=== PATIENT | male | born 1980 | race Asian ===

== ENCOUNTER 2017-06-12 16:38 | Emergency (ER) | payer OTHER ==
[2017-06-12 16:57] VITALS: BP 105/31; PULSE 98; TEMP 98.3; BMI 24.9
--- NOTE | 2017-06-12 17:56 | PDOC ---
History of Present Illness - General Chief Complaint: Injury Stated Complaint: INJURY Time Seen by Provider: 06/12/17 17:14 History Source: Patient Exam Limitations: No Limitations - History of Present Illness Initial Comments: 06/12/17 18:22 Patient is here with complaints of 6 weeks of left knee pain. States has swelling, pain, was diagnosed at another hospital with a left knee sprain but did not follow-up with any orthopedist. Patient has been using a knee/neoprene sleeve but has persistent pain and swelling in his left knee. Denies numbness or tingling to foot, no other injury. Has not used any medication or any treatment for relief of this pain. Long periods of standing. Severity: reports: mild Pain Location: reports: lower extremity (left knee ) Past History - Travel Traveled outside of the country in the last 30 days: No Close contact w/someone who was outside of country & ill: No - Past Medical History Allergies/Adverse Reactions: Allergies Allergy/AdvReac Type Severity Reaction Status Date / Time No Known Allergies Allergy Verified 06/12/17 16:52 Home Medications: Ambulatory Orders Naproxen [Naprosyn -] 500 mg PO TID #28 tablet 06/12/17 Other medical history: DENIES. - Psycho/Social/Smoking Cessation Hx Suicidal Ideation: No Smoking History: Current every day smoker Have you smoked in the past 12 months: Yes Number of Cigarettes Smoked Daily: 30 Information on smoking cessation initiated: No Review of Systems - Review of Systems Able to Perform ROS?: Yes Is the patient limited Wolof proficient: Yes Constitutional: Yes: Symptoms Reported, See HPI HEENTM: No: Symptoms Reported ABD/GI: No: Symptoms Reported Musculoskeletal: Yes: Symptoms Reported, Joint Pain (pain and swelling to left knee ) Integumentary: Yes: Symptoms Reported All Other Systems: Reviewed and Negative *Physical Exam - Vital Signs Last Vital Signs Temp Pulse Resp BP Pulse Ox 98.3 F 98 H 19 105/31 98 06/12/17 16:52 06/12/17 16:52 06/12/17 16:52 06/12/17 16:52 06/12/17 16:52 - Physical Exam General Appearance: Yes: Nourished, Appropriately Dressed, Apparent Distress HEENT: positive: Normal ENT Inspection, TMs Normal, Pharynx Normal Neck: positive: Supple Respiratory/Chest: positive: Lungs Clear Extremity: positive: Normal Capillary Refill, Normal Inspection, Tender. 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 Discussed would give Dr. Jose Lee's name who accepts Medicaid insurance and instructed to make appointment next week for evaluation of his left knee, and right wrist. We'll prescribe Naprosyn for anti- inflammatory and pain relief purpose encouraged to continue using neoprene sleeve, and ERMELINDA E *DC/Admit/Observation/Transfer Diagnosis at time of Disposition: Chronic pain of left knee - Discharge Dispostion Disposition: HOME Condition at time of disposition: Stable Admit: No - Referrals Referrals: Jose Harrison MD [Staff Physician] - - Patient Instructions Printed Discharge Instructions: DI for Knee Pain Additional Instructions: Rest, ice to area on and off for 15 minutes 4-6 times a day Avoid heavy lifting or exercise until pain and swelling is resolved or until further directed Continue use of neoprene splint for compression and support Keep area highly elevated to reduce swelling Followup with orthopedist in one to 2 days if not improving, if significantly improved may wait one week for followup with orthopedist May use Naprosyn 1-500 mg tablet every 8 hours as needed for pain Appointments for Dr. Harrison may be made for Friday morning between 9 and 12 or afternoon between 12 PM 5 PM. He'll need to call to make appointment for either of those times
== END 2017-06-12 18:52 | disposition home or self-care (01) ==
LOC: JERFT 16:38
DX: M25.562 Pain in left knee (principal); G89.29 Other chronic pain; F17.210 Nicotine dependence, cigarettes, uncomplicated
CPT/HCPCS: 99281-25

== ENCOUNTER 2017-12-23 19:34 | Emergency (ER) | payer OTHER ==
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
[2017-12-23 20:07] VITALS: BP 137/95; PULSE 99; TEMP 98.5; BMI 27.6
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
--- NOTE | 2017-12-23 22:28 | PDOC ---
*Physical Exam - Vital Signs Last Vital Signs Temp Pulse Resp BP Pulse Ox 98.5 F 99 H 20 137/95 97 12/23/17 20:03 12/23/17 20:03 12/23/17 20:03 12/23/17 20:03 12/23/17 20:03 Medical Decision Making - Medical Decision Making 12/23/17 22:28 agree with care from ABRAHAM Barroso *DC/Admit/Observation/Transfer Diagnosis at time of Disposition: Head trauma Qualifiers: Encounter type: initial encounter Qualified Code(s): S09.90XA - Unspecified injury of head, initial encounter - Discharge Dispostion Condition at time of disposition: Good - Referrals Referrals: Alvaro Dai MD [Primary Care Provider] - - Patient Instructions Printed Discharge Instructions: DI for Closed Head Injury - Post Discharge Activity
== END 2017-12-24 00:14 | disposition home or self-care (01) ==
LOC: JER 19:34
DX: S09.8XXA Other specified injuries of head, initial encounter (principal); Y04.0XXA Assault by unarmed brawl or fight, initial encounter; Y93.89 Activity, other specified; Y92.89 Other specified places as the place of occurrence of the external cause; Y99.8 Other external cause status; F17.210 Nicotine dependence, cigarettes, uncomplicated
CPT/HCPCS: 70450-TC; 99281-25

== ENCOUNTER 2019-08-09 06:31 | Emergency (ER) | payer OTHER ==
[2019-08-09 06:51] VITALS: BP 126/84; PULSE 84; TEMP 98.7; BMI 27.5
--- NOTE | 2019-08-09 08:22 | PDOC ---
History of Present Illness - General Chief Complaint: Edema Stated Complaint: SWELLING BOTH FEET Time Seen by Provider: 08/09/19 07:26 History Source: Patient, Old Records Exam Limitations: No Limitations - History of Present Illness Initial Comments: HPI: 38 y/o male presenting to [facility] ER complaining of pain and swelling to left lower extremity. Pt reports the symptoms have been acute on chronic for the past two to three months but became worse yesterday. Occasionally notices swelling to right foot without pain. Denies trauma to the area. Denies associated SOB or chest pain. Further states he sometimes has difficulty breathing. 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 PCP: [facility] Hx: - Denies past medical history Review of Systems: In addition to that documented in the HPI above, the additional ROS was obtained : Constitutional: Denies fevers or chills Head: Denies vision changes ENMT: Denies sore throat CV: Denies chest pain Resp: Denies SOB GI: Denies vomiting or diarrhea : Denies painful urination MSK: Denies recent trauma Skin: Denies new rashes Neuro: Denies new numbness or tingling or weakness Endocrine: Denies polyuria Heme: Denies bleeding or bruising Physical Examination: Constitutional: Well-developed, well-nourished adult male in no acute distress or obvious discomfort. Found asleep on hospital bed; easily arousable to voice. Alert and oriented x4. Answered all questions appropriately and completely. Speech was non-labored, non-pressured. Head: Normocephalic. No obvious external signs of trauma. Cardiovascular / Chest: Regular rate and regular rhythm. No murmur, rubs, clicks , or gallops. Peripheral pulses: radial pulses full. Respiratory: Breathing unlabored. Equal chest rise and fall. Clear to auscultation bilaterally. No stridor, no wheezing, no rhonchi. Gastrointestinal: abdomen is soft, non-tender, non-distended. Neuro: Alert and oriented. Moving all four extremities spontaneously. Skin: Warm, dry, and intact. MSK: Bilateral pedal swelling, greater in left. Firm and tender mass on left anterior tibia. Psych: Affect: appropriate. Mood: normal. MDM: *Reviewed vital signs, nursing notes, and prior visit documentation (if available). 38 y/o male presenting with bilateral lower extremity edema (right worse than left). BNP and D-dimer not elevated. U/S unremarkable for DVT. Xray unremarkable for lytic lesion. Suspect likely venous insufficiency. Referred pt to PCP for further evaluation. Provided copies of todays results. Anthony Kingston M.D., PGY2 Emergency Medicine Resident Past History - Past Medical History Allergies/Adverse Reactions: Allergies Allergy/AdvReac Type Severity Reaction Status Date / Time No Known Allergies Allergy Verified 08/09/19 06:45 Home Medications: Ambulatory Orders Naproxen [Naprosyn -] 500 mg PO TID #28 tablet 06/12/17 COPD: No - Suicide/Smoking/Psychosocial Hx Smoking History: Current every day smoker Have you smoked in the past 12 months: Yes Number of Cigarettes Smoked Daily: 15 Information on smoking cessation initiated: No Hx Alcohol Use: No Drug/Substance Use Hx: No Substance Use Type: None *Physical Exam - Vital Signs Last Vital Signs Temp Pulse Resp BP Pulse Ox 98.7 F 84 18 126/84 95 08/09/19 06:47 08/09/19 06:47 08/09/19 06:47 08/09/19 06:47 08/09/19 06:47 ED Treatment Course - LABORATORY CBC & Chemistry Diagram: 08/09/19 08:28 08/09/19 08:28 - RADIOLOGY Radiology Studies Ordered: Category Date Time Status LEG TIB/FIB-LEFT [RAD] Stat Radiology 08/09/19 08:12 Ordered *DC/Admit/Observation/Transfer Diagnosis at time of Disposition: Bilateral swelling of feet and ankles - Discharge Dispostion Disposition: HOME Condition at time of disposition: Good Decision to Admit order: No - Referrals - Patient Instructions Printed Discharge Instructions: DI for Peripheral Edema -- Bilateral Additional Instructions: You were seen today for swelling to your lower legs. Your xray, ultrasound, and blood work were normal. The swelling may be related to your job. Try elevating your legs after work. You can also try using compression socks, which are available at most pharmacies. Follow up with your primary care doctor at the [address] [place] [address] within the next 3-4 days. You will need to call to make an appointment. A copy of todays results are attached to this packet. Take it to the appointment so your doctor can review them. Go to the nearest emergency department if your condition worsens or you feel like you need additional emergency evaluation. Print Language: SLOVAK - Post Discharge Activity
[2019-08-09 08:43] LABS: BASO % 0.8 % (0-2.0); EOS % 1.9 % (0-4.5); HEMATOCRIT 42.4 % (35.4-49); HEMOGLOBIN 14.8 GM/dL (11.7-16.9); LYMPH % 33.2 % (8-40); MCH 30.8 pg (25.7-33.7); MEAN CELL VOLUME 88.1 fl (80-96); MEAN PLT VOLUME 7.7 fl (7.5-11.1); MONO % 4.9 % (3.8-10.2); NEUT % 59.2 % (42.8-82.8); PLATELET COUNT 243 K/MM3 (134-434); RBC 4.82 M/mm3 (4.00-5.60); RDW 13.6 % (11.9-15.9); WHITE BLOOD COUNT 9.4 K/mm3 (4.0-10.0)
[2019-08-09 09:10] LABS: BILIRUBIN,TOTAL 0.4 mg/dL (0.2-1); BLOOD UREA NITROGEN 29.8 mg/dL (7-18); CALCIUM 9.4 mg/dL (8.5-10.1); POTASSIUM 4.2 mmol/L (3.5-5.1); TOT PROT 6.5 g/dl (6.4-8.2)
[2019-08-09 09:13] LABS: PROTHROMBIN TIME (PATIENT) 11.8 SEC (9.7-13.0)
[2019-08-09 09:23] LABS: N-TERMINAL BNP < 5.0 pg/ml (5-125)
--- NOTE | 2019-08-09 11:37 | PDOC ---
Attending Attestation - Resident Resident Name: Anthony Kingston - ED Attending Attestation I have performed the following: I have examined & evaluated the patient, The case was reviewed & discussed with the resident, I agree w/resident's findings & plan, Exceptions are as noted - HPI HPI: 08/09/19 11:33 38yo M denies PMH presents to the emergency department for 2 months of lower extremity edema. He reports the swelling in his legs is worse towards the end of the day. 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 He notes his left lower extremity is a bit more swollen than his right. He presented today due to the persistence of the symptoms. He denies any associated chest pain or shortness of breath, but he states he becomes short of breath sometimes when he is trying to speak Korean. This does not happen when he speaks in Greek. He denies any fevers or chills. He denies headache, dizziness, focal weakness or numbness. He denies abdominal pain, nausea, vomiting, diarrhea, urinary symptoms. He denies any personal or family history of clotting. - Physicial Exam PE: 08/09/19 11:38 agree with resident exam - Medical Decision Making 08/09/19 11:39 38yo M presents to the ED with b/l pedal edema, that improves with elevation Likely venous stasis but DVT vs CHF also on ddx Pt c/o intermittent SOB, he has no significant PE risk factors, thus dimer was sent W/u remarkable with normal labs (including dimer, trop, BNP) US negative for DVT XR done given tender mass on exam to eval for bony lesions, XR negative Likely venous stasis, pt to f/u with PMD at [address] He is clinically stable for DC home I discussed the physical exam findings, ancillary test results and final diagnoses with the patient. I answered all of the patient's questions. The patient was satisfied with the care received and felt comfortable with the discharge plan and treatment plan. The patient will call their primary care physician within 24 hours to arrange follow-up and will return to the Emergency Department with any new, persistent or worsening symptoms. Heart Score/ECG Review #1 08/09/19 11:43 EKG read and int by me: NSR, rate 70. Normal axis and intervals. Single downsloping [place] in V1 (not consistent with Brugada, no hx syncope). Otherwsie, no OR[place]O or TWI. No previous EKG to compare.
--- NOTE | 2019-08-09 18:23 | EKG ---
Test Reason : Blood Pressure : / mmHG Vent. Rate : 070 BPM Atrial Rate : 070 BPM P-R Int : 180 ms QRS Dur : 094 ms QT Int : 380 ms P-R-T Axes : 040 005 018 degrees QTc Int : 410 ms NORMAL SINUS RHYTHM NORMAL ECG NO PREVIOUS ECGS AVAILABLE Confirmed by GENEVA LOU MD ([id number]) on 08/09/2019 6:22:47 PM Referred By: Confirmed By:GENEVA LOU MD
== END 2019-08-09 11:45 | disposition home or self-care (01) ==
LOC: JER 06:31
DX: R60.0 Localized edema (principal); F17.210 Nicotine dependence, cigarettes, uncomplicated
CPT/HCPCS: 36415; 71046-TC-FY; 73590-TC-LT-FY; 80053; 83880; 84484; 85025; 85379; 85610; 93005; 93010; 93970-TC; 99283-25

== ENCOUNTER 2020-01-08 06:19 | Emergency (ER) | payer OTHER ==
[2020-01-08 06:32] VITALS: BP 115/79; PULSE 93; TEMP 98; BMI 25.0
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
[2020-01-08 08:22] LABS: BASO % 0.6 % (0-2.0); EOS % 2.1 % (0-4.5); HEMATOCRIT 42.7 % (35.4-49); HEMOGLOBIN 15.1 GM/dL (11.7-16.9); LYMPH % 36.2 % (8-40); MCH 30.9 pg (25.7-33.7); MCHC 35.3 g/dl (32.0-35.9); MEAN CELL VOLUME 87.6 fl (80-96); MEAN PLT VOLUME 7.2 fl (7.5-11.1); MONO % 4.7 % (3.8-10.2); NEUT % 56.4 % (42.8-82.8); PLATELET COUNT 240 K/MM3 (134-434); RBC 4.87 M/mm3 (4.00-5.60); RDW 13.3 % (11.9-15.9); WHITE BLOOD COUNT 7.8 K/mm3 (4.0-10.0)
[2020-01-08 08:43] LABS: INR 0.98 (0.83-1.09); PROTHROMBIN TIME (PATIENT) 11.6 SEC (9.7-13.0)
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
[2020-01-08 08:58] LABS: ALBUMIN 3.8 g/dl (3.4-5.0); ALK PHOS 80 U/L (45-117); ANION GAP 6 MMOL/L (8-16); BILIRUBIN,TOTAL 0.2 mg/dL (0.2-1); BLOOD UREA NITROGEN 14.3 mg/dL (7-18); CALCIUM 8.8 mg/dL (8.5-10.1); CHLORIDE 106 mmol/L (98-107); CO2 28 mmol/L (21-32); CREATININE 1.1 mg/dL (0.55-1.3); GLUCOSE,RANDOM 116 mg/dL (74-106); N-TERMINAL BNP < 5.0 pg/ml (5-125); POTASSIUM 3.8 mmol/L (3.5-5.1); SGOT/AST 12 U/L (15-37); SGPT/ALT 22 U/L (13-61); SODIUM 140 mmol/L (136-145); TOT PROT 6.6 g/dl (6.4-8.2)
--- NOTE | 2020-01-10 10:05 | EKG ---
Test Reason : Blood Pressure : / mmHG Vent. Rate : 056 BPM Atrial Rate : 056 BPM P-R Int : 166 ms QRS Dur : 092 ms QT Int : 404 ms P-R-T Axes : -03 013 004 degrees QTc Int : 389 ms SINUS BRADYCARDIA WITH MARKED SINUS ARRHYTHMIA OTHERWISE NORMAL ECG WHEN COMPARED WITH ECG OF 09-AUG-2019 08:53, Heart rate has decreased Confirmed by Tamar Miles ([id number]) on 01/10/2020 10:05:23 AM Referred By: Confirmed By:Tamar Miles
== END 2020-01-08 10:05 | disposition home or self-care (01) ==
LOC: JER 06:19
DX: R45.1 Restlessness and agitation (principal); R06.02 Shortness of breath; F17.210 Nicotine dependence, cigarettes, uncomplicated
CPT/HCPCS: 36415; 71046-TC-FY; 80053; 82550; 83880; 84484; 85025; 85610; 93005; 93010; 99285-25

== ENCOUNTER 2020-09-02 02:57 | Emergency (ER) | payer OTHER ==
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
[2020-09-02 03:23] VITALS: BP 133/84; PULSE 97; TEMP 98.6; BMI 28.2
--- OUTSIDE RECORDS SUMMARY | 2020-09-02 03:25 | XMS ---
:1980 Author Organization [facility] Support Name Relationship [place] [address] UE, UNEMPLOYED Unavailable Unavailable Unavailable UE Unavailable Unavailable Unavailable ABCESAR ALLEN [address] [place] [address] CESAR FENG Spouse [address] [place] [address] Re-disclosure Warning The records that you are about to access may contain information from federally- assisted alcohol or drug abuse programs. If such information is present, then the following federally mandated warning applies: This information has been disclosed to you from records protected by federal confidentiality rules (42 CFR part 2). The federal rules prohibit you from making any further disclosure of this information unless further disclosure is expressly permitted by the written consent of the person to whom it pertains or as otherwise permitted by 42 CFR part 2. A general authorization for the release of medical or other information is NOT sufficient for this purpose. The Federal rules restrict any use of the information to criminally investigate or prosecute any alcohol or drug abuse patient.The records that you are about to access may contain highly sensitive health information, the redisclosure of which is protected by Article 27-F of the [facility] Public Health law. If you continue you may haveaccess to information: Regarding HIV / AIDS; Provided by facilities licensed or operated by the [facility] Office of Mental Health; or Provided by the [facility] Office for People With Developmental Disabilities. If such information is present, then the following [facility] mandated warning applies: This information has been disclosed to you from confidential records which are protected by state law. State law prohibits you from making any further disclosure of this information without the specific written consent of the person to whom it pertains, or as otherwise permitted by law. Any unauthorized further disclosure in violation of state law may result in a fine or chcf sentence or both. A general authorization for the release of medical or other information is NOT sufficient authorization for further disclosure. Insurance Providers Payer name Policy type Policy ID Covered Covered republican's Policy P artur / Coverage republican ID relationship to [employer] orm[employer] type norris [facility] [id number] SP [id number] HEALTH NON CAP [facility] [id number] SP [id number] [employer]SS[employer] 3 4 HEALTH FIRST [id number] SP [id number] T
[2020-09-02] MEDS ORDERED: ACETAMINOPHEN 500 MG TABLET (FP) PO ONE (03:45)
[2020-09-02] MEDS ORDERED: LIDOCAINE 5% TOPICAL PATCH TP ONE (03:58)
[2020-09-02] MEDS ORDERED: CYCLOBENZAPRINE HCL 5 MG TABLET PO ONE (04:14)
[2020-09-02] MEDS ORDERED: CYCLOBENZAPRINE HCL 10 MG TABLET (FP) ONE (04:24)
[2020-09-02] MEDS ORDERED: ACETAMINOPHEN 325 MG TABLET (FP) ONE (04:24)
[2020-09-02] MEDS ORDERED: LIDOCAINE 5% TOPICAL PATCH ONE (04:24)
[2020-09-02] MEDS ORDERED: KETOROLAC TROMETHAMINE 30 MG/1 ML VIAL IM ONE (04:28)
[2020-09-02] MEDS ORDERED: KETOROLAC TROMETHAMINE 30 MG/1 ML VIAL ONE (04:29)
[2020-09-02] MEDS ORDERED: CYCLOBENZAPRINE HCL 5 MG TABLET PO SCH (10:00)
[2020-09-02] MEDS ORDERED: LIDOCAINE PATCH REMOVAL MC SCH (22:00)
== END 2020-09-02 05:21 | disposition home or self-care (01) ==
LOC: JER 02:57
PROC: 3E0233Z Introduction of Anti-inflammatory into Muscle, Percutaneous Approach (ICD-10-PCS; principal; 2020-09-02)
DX: M79.10 Myalgia, unspecified site (principal); M62.838 Other muscle spasm
CPT/HCPCS: 72125-TC; 99285-25

== ENCOUNTER 2020-10-03 00:34 | Emergency (ER) | payer OTHER ==
[2020-10-03 00:51] VITALS: TEMP 98.1; BMI 26.4
[2020-10-03] MEDS ORDERED: ONDANSETRON *ODT* 4 MG TABLET SL ONE (01:27)
[2020-10-03] MEDS ORDERED: ONDANSETRON *ODT* 4 MG TABLET ONE (01:29)
[2020-10-03 01:41] LABS: BASO % 0.5 % (0-2.0); EOS % 1.5 % (0-4.5); HEMATOCRIT 52.1 % (35.4-49); LYMPH % 20.8 % (8-40); MCH 31.7 pg (25.7-33.7); MCHC 34.6 g/dl (32.0-35.9); MEAN CELL VOLUME 91.6 fl (80-96); MEAN PLT VOLUME 7.4 fl (7.5-11.1); MONO % 5.3 % (3.8-10.2); NEUT % 71.9 % (42.8-82.8); PLATELET COUNT 310 K/MM3 (134-434); RBC 5.69 M/mm3 (4.00-5.60); RDW 13.2 % (11.9-15.9); WHITE BLOOD COUNT 14.1 K/mm3 (4.0-10.0)
[2020-10-03 01:47] LABS: URINE APPEARANCE CLEAR; URINE BILIRUBIN NEGATIVE (NEGATIVE); URINE COLOR YELLOW; URINE GLUCOSE (UA) NEGATIVE (NEGATIVE); URINE KETONE NEGATIVE (NEGATIVE); URINE LEUK ESTERASE NEGATIVE (NEGATIVE); URINE NITRITE NEGATIVE (NEGATIVE); URINE PROTEIN NEGATIVE (NEGATIVE); URINE UROBILINOGEN 0.2 mg/dL (0.2-1.0)
[2020-10-03 01:58] LABS: CHLORIDE 105 mmol/L (98-107); POTASSIUM 3.7 mmol/L (3.5-5.1); SODIUM 139 mmol/L (136-145)
[2020-10-03 02:00] LABS: ALBUMIN 4.7 g/dl (3.4-5.0); ANION GAP 5 MMOL/L (8-16); BLOOD UREA NITROGEN 13.1 mg/dL (7-18); CALCIUM 9.3 mg/dL (8.5-10.1); CO2 29 mmol/L (21-32); GLUCOSE,RANDOM 125 mg/dL (74-106)
[2020-10-03 02:03] LABS: CREATININE 1.1 mg/dL (0.55-1.3); SGOT/AST 16 U/L (15-37); SGPT/ALT 35 U/L (13-61)
[2020-10-03 02:05] LABS: BILIRUBIN,TOTAL 0.4 mg/dL (0.2-1); TOT PROT 8.4 g/dl (6.4-8.2)
[2020-10-03 02:06] LABS: ALK PHOS 95 U/L (45-117)
[2020-10-03 04:38] VITALS: BP 126/73; PULSE 85
== END 2020-10-03 04:38 | disposition home or self-care (01) ==
LOC: JER 00:34
DX: R11.0 Nausea (principal)
CPT/HCPCS: 36415; 71046-TC-FY; 80053; 81003; 82550; 82553; 83690; 84484; 85025; 93005; 93010; 99285-25; Q0162

== ENCOUNTER 2020-10-28 00:09 | Emergency (ER) | payer OTHER ==
[2020-10-28 00:55] VITALS: BMI 31.5
[2020-10-28 08:09] VITALS: BP 112/62; PULSE 67; TEMP 97.7
== END 2020-10-28 08:25 | disposition home or self-care (01) ==
LOC: JER 00:09
DX: F41.9 Anxiety disorder, unspecified (principal)
CPT/HCPCS: 99283-25

== ENCOUNTER 2021-04-18 23:31 | Emergency (ER) | payer OTHER ==
[2021-04-18 23:46] VITALS: BP 133/88; PULSE 89; TEMP 98.2; BMI 25.1
[2021-04-19] MEDS ORDERED: IBUPROFEN 600 MG TABLET (FP) PO ONE ×2 (00:57→01:06)
== END 2021-04-19 01:44 | disposition home or self-care (01) ==
LOC: JER 23:31
DX: F43.0 Acute stress reaction (principal)
CPT/HCPCS: 99283-25

== ENCOUNTER 2021-04-25 23:05 | Emergency (ER) | payer OTHER ==
[2021-04-25 23:21] VITALS: BP 129/82; PULSE 107; TEMP 97.8; BMI 20.6
== END 2021-04-26 01:39 | disposition home or self-care (01) ==
LOC: JER 23:05
DX: F41.9 Anxiety disorder, unspecified (principal)
CPT/HCPCS: 99281-25